=== PATIENT | female | born 1980 | race Caucasian/White ===

== ENCOUNTER 2018-06-02 22:47 | Emergency (ER) | payer SELFPAY, MEDICAID | END 2018-06-02 23:40 | disposition left against medical advice (07) | LOC: FTE 22:47 | DX: Z53.21 Procedure and treatment not carried out due to patient leaving prior to being seen by health care provider (principal) ==

== ENCOUNTER 2019-02-19 21:07 | Emergency (ER) | payer MEDICAID ==
[2019-02-19 23:46] LABS: ADD MAN DIFF? NO
[2019-02-19 23:49] LABS: WHITE BLOOD COUNT 12.5 10^3/ul (4.8-10.8)
[2019-02-19 23:49] LABS: BASOPHIL # 0.1 10^3/ul (0.0-0.1); BASOPHILS % 0.6 % (0.0-2.0); EOSINOPHILS # 0.1 10^3/ul (0.0-0.5); EOSINOPHILS % 0.5 % (0.0-7.0); HEMOGLOBIN 12.5 g/dl (12.0-16.0); LYMPHOCYTES # 1.5 10^3/ul (0.8-2.9); LYMPHOCYTES % 12.2 % (15.0-51.0); MEAN CORPUSCULAR HEMOGLOBIN 29.1 pg (29.0-33.0); MEAN CORPUSCULAR HGB CONC 32.9 g/dl (32.0-37.0); MEAN CORPUSCULAR VOLUME 88.4 fl (82.0-101.0); MEAN PLATELET VOLUME 9.9 fl (7.4-10.4); MONOCYTE # 0.8 10^3/ul (0.3-0.9); MONOCYTES % 6.3 % (0.0-11.0); NEUTROPHILS % 80.2 % (39.0-77.0); PLATELET COUNT 365 10^3/UL (140-415); RED CELL DISTRIBUTION WIDTH 13.4 % (11.5-14.5)
[2019-02-19 23:56] LABS: ADD UMIC YES; UR ASCORBIC ACID NEGATIVE (NEGATIVE); UR BACTERIA FEW /HPF (NONE SEEN); UR BILIRUBIN (Dip) NEGATIVE (NEGATIVE); UR BLOOD (Dip) 3+ mg/dL (NEGATIVE); UR CLARITY SLIGHTLY CLOUDY (CLEAR); UR COLOR AMBER (YELLOW); UR GLUCOSE (Dip) NEGATIVE (NEGATIVE); UR KETONES (Dip) TRACE mg/dL (NEGATIVE); UR LEUKOCYTE ESTERASE (Dip) 2+ Leu/ul (NEGATIVE); UR MUCUS FEW /HPF (NONE SEEN); UR NITRITE (Dip) POSITIVE (NEGATIVE); UR RBC 6 /HPF (0-5); UR SPECIFIC GRAVITY (Dip) 1.031 (1.003-1.030); UR SQUAMOUS EPITHELIAL CELL FEW /HPF (FEW); UR TOTAL PROTEIN (Dip) 1+ mg/dl (NEGATIVE); UR UROBILINOGEN (Dip) NEGATIVE (NEGATIVE); UR WBC 15 /HPF (0-5)
[2019-02-20] MEDS: morphine 2 MG INJ IV (00:03)
[2019-02-20] MEDS: SOD CHLORIDE 0.9% 1,000 ML IV (00:03)
[2019-02-20] MEDS: ONDANSETRON 4 MG INJ IV (00:03)
[2019-02-20 00:04] LABS: ALANINE AMINOTRANSFERASE 28 IU/L (13-69); ALBUMIN 4.4 g/dl (3.3-4.9); ALBUMIN/GLOBULIN RATIO 1.33; ALKALINE PHOSPHATASE 83 IU/L (42-121); ANION GAP 10 (5-13); ASPARTATE AMINO TRANSFERASE 37 IU/L (15-46); BILIRUBIN,INDIRECT 0.6 mg/dl (0-1.1); BILIRUBIN,TOTAL 0.6 mg/dl (0.2-1.3); BLOOD UREA NITROGEN 16 mg/dl (7-20); CALCIUM 8.8 mg/dl (8.4-10.2); CARBON DIOXIDE 26 mmol/L (21-31); CHLORIDE 106 mmol/L (97-110); CREATININE 0.82 mg/dl (0.44-1.00); Estimated GFR > 60 mL/min (>60); GLUCOSE 117 mg/dl (70-220); LIPASE 205 U/L (23-300); POTASSIUM 3.4 mmol/L (3.5-5.1); SODIUM 142 mmol/L (135-144); TOTAL PROTEIN 7.7 g/dl (6.1-8.1)
[2019-02-20] MEDS: KETOROLAC 30 MG INJ IV (00:04)
[2019-02-20] MEDS ORDERED: SOD CHLORIDE 0.9% 1,000 ML IV (03:36)
[2019-02-20] MEDS: PIPER-TAZO 3.375 GM IV (PMX) 100 ML IVPB (03:37)
[2019-02-20] MEDS ORDERED: BISACODYL (EC) 5 MG TAB PO (04:00)
[2019-02-20] MEDS ORDERED: ONDANSETRON 4 MG INJ IV (04:00)
[2019-02-20] MEDS ORDERED: NACL 0.9% 3 ML SYG IV (04:00)
[2019-02-20] MEDS ORDERED: DOCUSATE SODIUM 100 MG CAP PO (04:00)
[2019-02-20] MEDS ORDERED: ACETAMINOPHEN 325 MG TAB PO (04:00)
[2019-02-20] MEDS ORDERED: HYDROmorphONE 0.5 MG/0.5 ML SYG IV (04:00)
[2019-02-20] MEDS ORDERED: PIPER-TAZO 3.375 GM IV (PMX) 100 ML IVPB (10:00)
== END 2019-02-20 10:03 | disposition left against medical advice (07) ==
LOC: FTE 21:07
DX: K80.50 Calculus of bile duct without cholangitis or cholecystitis without obstruction (principal); N39.0 Urinary tract infection, site not specified
CPT/HCPCS: 36415; 76705; 80053; 81001; 81025; 83690; 85025; 87086; 96374; 96375; 99285-25